=== PATIENT | male | born 1980 | race Caucasian/White ===

== ENCOUNTER 2017-03-12 13:07 | Emergency (ER) | payer BC ==
[2017-03-12 13:13] VITALS: BP 106/76
--- NOTE | 2017-03-12 17:02 | Emergency Department Report ---
ED Extremity Problem HPI - General Chief complaint: Extremity Injury, Lower Stated complaint: LEFT ANKLE PAIN Time Seen by Provider: 03/12/17 16:22 Source: patient Mode of arrival: Ambulatory Limitations: No Limitations - History of Present Illness Initial comments: PT states that he needs a work release. PT states he injured his Left ankle at work on 03-09-17. PT states the injury occurred when he was picking up bottom sheets. PT states he did not notice that he had stepped on the side of a pallet , until it tilted and he rolled his L ankle. PT c/o L ankle pain, improved with RICE and Motrin. PT denies any other injury -: Sudden, days(s) Location: left, lower extremity (ankle ) History of Same: No Radiation: none Severity scale (0 -10): 2 Consistency: constant Improves with: elevation, medication, rest Worsens with: weight bearing, walking, palpation Associated Symptoms: denies other symptoms - Related Data Previous Rx's Medication Instructions Recorded Last Taken Type Ibuprofen [Motrin] 600 mg PO Q8H PRN #15 tablet 03/12/17 Unknown Rx Allergies Allergy/AdvReac Type Severity Reaction Status Date / Time No Known Allergies Allergy Unverified 03/12/17 13:11 ED Review of Systems ROS: Stated complaint: LEFT ANKLE PAIN Other details as noted in HPI Comment: All other systems reviewed and negative Cardiovascular: denies: chest pain Gastrointestinal: denies: abdominal pain Musculoskeletal: as per HPI, joint swelling. denies: back pain Neurological: abnormal gait ED Past Medical Hx - Past Medical History Previous Medical History?: No - Surgical History Additional Surgical History: right foot sx - Social History Smoking Status: Never Smoker Substance Use Type: Alcohol - Medications Home Medications: Home Medications Medication Instructions Recorded Confirmed Last Taken Type Ibuprofen [Motrin] 600 mg PO Q8H PRN #15 tablet 03/12/17 Unknown Rx ED Physical Exam - General Limitations: No Limitations General appearance: alert, in no apparent distress - Head Head exam: Present: atraumatic, normocephalic, normal inspection - Eye Eye exam: Present: normal appearance, PERRL, EOMI. Absent: conjunctival injection - ENT ENT exam: Present: normal exam, mucous membranes moist, normal external ear exam - Neck Neck exam: Present: normal inspection, full ROM - Respiratory Respiratory exam: Present: normal lung sounds bilaterally. Absent: respiratory distress, chest wall tenderness - Cardiovascular Cardiovascular Exam: Present: regular rate, normal rhythm, normal heart sounds - GI/Abdominal GI/Abdominal exam: Present: soft. Absent: tenderness - Extremities Exam Extremities exam: Present: full ROM, tenderness, normal capillary refill, joint swelling. Absent: pedal edema - Expanded Upper Extremity Exam Left General: Present: normal inspection Right General: Present: normal inspection - Expanded Lower Extremity Exam Right Ankle exam: Present: normal inspection, full ROM. Absent: tenderness Left Lower Leg exam: Present: normal inspection, full ROM Ankle exam: Present: full ROM, tenderness (Lateral malleolus ), ecchymosis. Absent: normal inspection, deformity, erythema Foot/Toe exam: Present: normal inspection, full ROM. Absent: tenderness, swelling, erythema, puncture wound, calcaneal tenderness, tenderness at base of 5th metatarsal Neuro vascular tendon exam: Present: no vascular compromise. Absent: pulse deficit Gait: Positive: observed and normal - Back Exam Back exam: Present: normal inspection, full ROM. Absent: tenderness, CVA tenderness (R), CVA tenderness (L) - Neurological Exam Neurological exam: Present: alert, oriented X3, normal gait - Psychiatric Psychiatric exam: Present: normal affect, normal mood - Skin Skin exam: Present: warm, dry, intact ED Course Vital Signs 03/12/17 13:11 Temperature 97.8 F Pulse Rate 67 Respiratory 17 Rate Blood Pressure 106/76 O2 Sat by Pulse 100 Oximetry - Reevaluation(s) Reevaluation #1: 03/12/17 18:43 PT aware of XR results. PT has no questions at this time. Reevaluation #2: 03/12/17 18:59 Nursing staff applied Velcro stirrup splint. pt nvi. - Pulse Oximetry Interpretation Digit-Finger Initial Pulse Oximetry Readin Actions Taken: none ED Medical Decision Making - Radiology Data Radiology results: report reviewed XR L ankle - no fx, soft tissue swelling - Differential Diagnosis fracture, strain Critical Care Time: No Critical care attestation.: If time is entered above; I have spent that time in minutes in the direct care of this critically ill patient, excluding procedure time. ED Disposition Clinical Impression: Left ankle sprain Qualifiers: Encounter type: initial encounter Involved ligament of ankle: unspecified ligament Qualified Code(s): S93.402A - Sprain of unspecified ligament of left ankle, initial encounter Disposition: TO HOME OR SELFCARE Is pt being admited?: No Does the pt Need Aspirin: No Condition: Stable Instructions: Ankle Sprain (ED), Ankle Stirrup Splint (ED), RICE Therapy (ED) Additional Instructions: Wear Velcro splint when up and active Follow up with ORTHO in 3-5 days Prescriptions: Ibuprofen [Motrin] 600 mg PO Q8H PRN #15 tablet PRN Reason: Pain Referrals: PRIMARY CARE, [Primary Care Provider] - 3-5 Days CLAIRE KENNEDY MD [Staff Physician] - 3-5 Days Forms: Work/School Release Form(ED) Time of Disposition: 18:43
--- NOTE | 2017-03-12 18:33 | XRay Report ---
FINAL REPORT EXAM: XR ANKLE 3+V LT HISTORY: LEFT ANKLE pain sp injury TECHNIQUE: Left ankle three views 3 images PRIORS: None. FINDINGS: Bone mineralization appears within normal limits. No acute fracture or subluxation is identified. Soft tissue swelling is seen over the lateral malleolus. IMPRESSION: 1. Soft tissue swelling is noted. 2. No acute fracture is identified. If symptoms persist, consider repeat study in 10-14 days to assess for a currently radiographically occult fracture.
== END 2017-03-12 17:30 | disposition home or self-care (01) ==
LOC: ED 13:07
DX: S93.402A Sprain of unspecified ligament of left ankle, initial encounter (principal); X58.XXXA Exposure to other specified factors, initial encounter; Y93.9 Activity, unspecified; Y92.9 Unspecified place or not applicable; Y99.9 Unspecified external cause status